=== PATIENT | male | born 2000 | race Asian ===

== ENCOUNTER 2025-06-24 19:54 | Emergency (ER) | payer SELFPAY ==
[2025-06-24 20:01] VITALS: BP 141/86
[2025-06-24 21:23] VITALS: BMI 24.8
[2025-06-24] MEDS: LET TOPICAL ANESTHETIC GEL 3 ML TOPICAL (22:13)
--- NOTE | 2025-06-24 23:09 | ED.GENMED ---
History of Present Illness
General
Chief Complaint: Skin Surface Trauma
Source: patient and family
Exam Limitations: none
Time Seen by Provider: 06/24/25 20:58
Nursing documentation reviewed up to this point in time: agreed with
History of Present Illness
History of Present Illness:
Patient is a 24-year-old male presenting to the emergency department today with concerns of a laceration to the right upper lip that occurred after he accidentally walked into a wall. Did not lose consciousness no numbness weakness or additional
concerns no neck pain. Not on blood thinners. Does have a laceration to the right upper lip. Does marginally cross the [place]mil[place] border. Denies any risk of infection any infectious history denies any foreign bodies. Patient claims that he
believes he is up-to-date with his tetanus shot.
Review of Systems
Review of Systems
Allergies reviewed?: Yes
All Other Systems: ROS reviewed and negative except as documented in HPI and ROS
Phy Exam
Physical Exam
Physical Exam:
GENERAL: Alert , in no apparent distress
EYE: pupils equal and reactive
NECK: Supple, no significant adenopathy.
ENT: o/p clr, mmm.
CARDIAC: Regular rate and rhythm .
LUNGS: Clear breath sounds bilaterally, no acute respiratory distress, no wheezes/rales/rhonchi
ABDOMEN: Soft, without focal tenderness, no r/g, no cvat
NEUROLOGICAL: Alert and oriented, no focal neuro deficits
SKIN: Laceration to the right upper lip and shape of the nail, 1 cm in total length subcutaneous in depth. No foreign body seen. Warm and dry, skin intact.
MUSCULOSKELETAL: No edema, well perfused.
PSYCH: Normal and appropriate interaction.
Course
Orders/Labs/Results
Orders:
Orders
06/24/25 22:07
Lidocaine/Epinephrine/Tetracai [Let Topical Anesthetic Gel] 3 ml TOPICAL NOW STA
Vital Signs
Initial and Last Documented VS:
Initial Vital Signs
Temp Pulse Resp BP Pulse Ox
97.8 F 76 18 141/86 100
06/24/25 20:01 06/24/25 20:01 06/24/25 20:01 06/24/25 20:01 06/24/25 20:01
Last Documented Vital Signs
Temp Pulse Resp BP Pulse Ox
97.8 F 76 18 141/86 100
06/24/25 20:01 06/24/25 20:01 06/24/25 20:01 06/24/25 20:01 06/24/25 20:01
Procedures
Laceration Closure
Right upper lip:
Status of Wound: clean
Size of Wound in cm: 1
Description of Wound Edges: sharp
Preparation: cleaned with saline
Anesthesia: 1% Lidocaine
Revision/Debridement: routine- no revision
Wound exploration: explored to base- no FB
Type of Closure: single layer closure
Skin Closure Material: other (5-0 fast-absorbing plain gut)
Number of sutures: 3
MDM/Problems Addressed
MDM/Problems Addressed:
24-year-old male presenting to the emergency department today with concerns of laceration to his right upper lip that occurred after walking to a wall prior to arrival. No loss of consciousness [place] head CT negative. No neck pain. Laceration
is not through and through. Laceration was cleaned thoroughly closed with 3 dissolving stitches otherwise advised for close outpatient follow-up. Return precautions given.
*Pulse Oximetry
SaO2: 100
Oxygen Mode of Delivery: Room air
Patient hypoxic: no (100)
*Critical Care Note
Total Time (30-74mins, 75-104mins- exclusive of procedures): Not Applicable
ED Attending Note
-
Portions of this chart may have been created with voice recognition software.� Occasional wrong word or��sound alike� substitutions may have occurred due to the inherent limitations of voice recognition software.
Discharge Plan
Departure
Patient Disposition: Home (Routine Discharge)
Date of Disposition: 06/24/25
Time of Disposition: 23:11
Patient with high blood pressure during this ER visit?: No
Condition: Good
Covid-19: Not Applicable
Discharge Problem:
Laceration of lip
Instructions: Laceration Repair With Stitches (DC)
Referrals:
NONE,* [Family Provider, Internal Medicine]
Activity Restrictions/Additional Instructions:
You came to the emergency department today with concerns of a laceration to your right upper lip. This was closed with 3 dissolving stitches. Please try to put ointment on the laceration in 5 days to help with dissolving. Return for any
worsening, new or concerning symptoms.
Interventions
Interventions:
*General Assessment Last Done: 06/24/25 21:23
*Neglect/Abuse Screening Last Done: 06/24/25 20:01
*ED COVID-19 Vaccine History Last Done: 06/24/25 21:23
*ED Influenza Vaccine History Last Done: 06/24/25 21:23
[facility] Fall Risk Assessment Tool Last Done: 06/24/25 21:23
*Risk Screen - Suicide (C-SSRS) Last Done: 06/24/25 20:01
ED-Skin Assessment Last Done: 06/24/25 21:23
Discharge Date and Time
Print Language: MAORI
[2025-06-24 23:30] VITALS: BP 137/82
== END 2025-06-24 23:30 | disposition home or self-care (01) ==
LOC: EMR 19:54
PROVIDERS: EMERGENCY PHYSICIAN Emergency Medicine
DX: S01.511A Laceration without foreign body of lip, initial encounter (principal); W22.01XA Walked into wall, initial encounter; Y93.01 Activity, walking, marching and hiking
CPT/HCPCS: 99282; 12011